=== PATIENT | male | born 1940 | race Caucasian/White ===

== ENCOUNTER 2020-06-25 11:50 | Inpatient (IN) | payer MEDICARE, OTHER ==
[~2020-06-25] VITALS: Ht 182.9 cm; Wt 108.0 kg
[~2020-06-25 11:50] MED LIST: AVAPRO300 MG PO; CRESTOR20 MG PO; PREDNISOLONE ACE5 ML EYEBOTH; ZOLOFT25 MG PO
[2020-06-25 12:44] LABS: RED BLOOD COUNT 4.87 M/UL (4.20-5.50); WHITE BLOOD COUNT 7.3 K/UL (4.5-11.0)
[2020-06-25 13:06] LABS: BUN/CREATININE RATIO 22 (0-10)
[2020-06-25] MEDS ORDERED: HYDROCHLOROTH12.5 M1 PO (15:17)
[2020-06-25] MEDS ORDERED: LEVOTHYROXINE25 MCG PO (15:44)
[2020-06-25] MEDS ORDERED: DEXILANT60 MG PO (15:45)
[2020-06-25] MEDS ORDERED: ZOLPIDEM TARTRAT5 MG PO (15:46)
[2020-06-25] MEDS ORDERED: METFORMIN HCL1000 MG PO (15:48)
[2020-06-25] MEDS ORDERED: LUTEIN40 MG PO (15:48)
[2020-06-25] MEDS ORDERED: SENNA PLUS TAB1 EACH PO (15:49)
[2020-06-25] MEDS ORDERED: ZINC50 M2 PO (15:49)
[2020-06-25] MEDS ORDERED: VITAMIN D350 MCG PO (15:50)
[2020-06-25] MEDS ORDERED: VITAMIN C500 M4 PO (15:51)
[2020-06-25] MEDS ORDERED: VITAMIN B-121000 MC2 PO (15:52)
[2020-06-26 02:41] LABS: HEMOGLOBIN 13.9 gm/dl (14.0-17.5); RED BLOOD COUNT 4.78 M/UL (4.20-5.50); WHITE BLOOD COUNT 8.7 K/UL (4.5-11.0)
[2020-06-26 03:06] LABS: BUN/CREATININE RATIO 20 (0-10)
[2020-06-27] MEDS ORDERED: LOPRESSOR 25 MG25 MG PO (09:06)
[2020-06-27] MEDS ORDERED: ELIQUIS 5 MG TAB5 MG PO (09:06)
== END 2020-06-27 10:24 | disposition home or self-care (01) | DRG 310 ==
LOC: ER1 11:50 → PROG CARE 13:56 → CDU 13:56 → PROG CARE 19:05
PROVIDERS: Emergency Medicine; ADMIT Internal Medicine
PROC: 5A2204Z Restoration of Cardiac Rhythm, Single (ICD-10-PCS; principal; 2020-06-26)
PROC: B24BZZZ Ultrasonography of Heart with Aorta (ICD-10-PCS; 2020-06-26)
DX: I48.92 Unspecified atrial flutter (principal); I10 Essential (primary) hypertension; E78.5 Hyperlipidemia, unspecified; E11.9 Type 2 diabetes mellitus without complications; E03.9 Hypothyroidism, unspecified; M19.90 Unspecified osteoarthritis, unspecified site; I25.10 Atherosclerotic heart disease of native coronary artery without angina pectoris; K21.9 Gastro-esophageal reflux disease without esophagitis; I45.89 Other specified conduction disorders; K44.9 Diaphragmatic hernia without obstruction or gangrene; I08.1 Rheumatic disorders of both mitral and tricuspid valves; F15.99 Other stimulant use, unspecified with unspecified stimulant-induced disorder; Z20.822 Contact with and (suspected) exposure to COVID-19; Z88.1 Allergy status to other antibiotic agents; Z88.0 Allergy status to penicillin; Z88.8 Allergy status to other drugs, medicaments and biological substances; Z79.84 Long term (current) use of oral hypoglycemic drugs
CPT/HCPCS: ECHO; 36415; 71045; 80048; 80053; 81001; 82550; 82553; 82962; 83735; 83874; 83880; 84439; 84443; 84484; 85025; 85379; 85610; 85730; 93005; 93306; 93609; 93621; 93623; 96365; 96366; 96372; 96375; 99152; 99153; 99285; C1730; C1733; C1766; J1644; J1650; J2250; J3010; J7030; J7040; J7050; U0002

== ENCOUNTER → 2020-07-15 | Outpatient (CLI) | payer MEDICARE ==
[~2020-07-15] MED LIST changes: +DEXILANT60 MG PO; +ELIQUIS 5 MG TAB5 MG PO; +HYDROCHLOROTH12.5 M1 PO; +LEVOTHYROXINE25 MCG PO; +LOPRESSOR 25 MG25 MG PO; +LUTEIN40 MG PO; +METFORMIN HCL1000 MG PO; +SENNA PLUS TAB1 EACH PO; +VITAMIN B-121000 MC2 PO; +VITAMIN C500 M4 PO; +VITAMIN D350 MCG PO; +ZINC50 M2 PO; +ZOLPIDEM TARTRAT5 MG PO
== END ==
LOC: HEART 5 07:56
DX: I47.1 Supraventricular tachycardia (principal); R00.2 Palpitations

== ENCOUNTER → 2021-01-14 | Outpatient (CLI) | payer MEDICARE | LOC: KOH-I 08:30 | DX: J32.4 Chronic pansinusitis (principal) | CPT/HCPCS: 70486 ==

== ENCOUNTER → 2021-01-25 | Outpatient (CLI) | payer MEDICARE | LOC: ECHO 09:00 | DX: U07.1 COVID-19 (principal); I48.91 Unspecified atrial fibrillation; R60.9 Edema, unspecified; I07.1 Rheumatic tricuspid insufficiency; I27.20 Pulmonary hypertension, unspecified | CPT/HCPCS: ECHO; 93306 ==

== ENCOUNTER → 2021-12-15 | Outpatient (CLI) | payer OTHER | LOC: LAB 15:42 | PROVIDERS: Internal Medicine | DX: D50.9 Iron deficiency anemia, unspecified (principal) | CPT/HCPCS: 36415; 85014; 85018; 86850; 86900; 86901; 86920; P9016 ==